=== PATIENT | female | born 1985 | race Caucasian/White ===

== ENCOUNTER 2022-04-17 17:00 | Emergency (ER) | payer BC, SELFPAY ==
[2022-04-17] VITALS (9 sets, daily range): BP systolic 104–148; BP diastolic 50–82; PULSE 62–124; RESP 13–18; TEMP 36.7; O2SAT 90–98; BMI 46.7
--- NOTE | 2022-04-17 16:57 | XR_ITS ---
PROCEDURE INFORMATION: Exam: XR Chest Exam date and time: 04/17/2022 5:18 PM Age: 36 years old Clinical indication: Angina and tachypnea; Additional info: Elevated hr, cp TECHNIQUE: Imaging protocol: XR of the chest. Views: 1 view. COMPARISON: No relevant prior studies available. FINDINGS: Lungs: Unremarkable. No consolidation. Pleural spaces: Unremarkable. No pleural effusion. No pneumothorax. Heart/Mediastinum: Unremarkable. No cardiomegaly. Bones/joints: Unremarkable. IMPRESSION: No acute findings.
--- NOTE | 2022-04-17 17:00 | ECG_ITS ---
APPROVED REPORT Exam: Resting ECG HR:116 bpm ECG Measurements Heart Rate 116 AXES FL 148 P 17 QRSd 93 QRS 72 QT 327 T 49 QTc 396 Conclusion SINUS TACHYCARDIA LOW QRS VOLTAGE IN PRECORDIAL LEADS [QRS DEFLECTION < 1.0 mV IN CHEST LEADS] ABNORMAL RHYTHM ECG UNCONFIRMED REPORT Electronically signed by : Vipin Avilez MD 04/17/2022 21:31:11
--- NOTE | 2022-04-17 17:19 | HMH.EDGENADL ---
ED Disposition <Breann Morataya - Last Filed: 04/17/22 20:27> Condition on Discharge: Good - Critical Care Critical Care Time: No <RochelleCharlie duron - Last Filed: 04/17/22 21:04> Clinical Impression: Atypical chest pain, Palpitations Disposition: Home, Self-Care Instructions: DI for Atypical Chest Pain Additional Instructions: see card in am Referrals: Provider,Referral, MD [Referring] - Attestation: On 04/17/22, the high probability of a clinically significant, sudden or life threatening deterioration of the following system(s) required my full and direct attention, intervention and personal management. The time I documented below is in addition to time spent performing reported procedures but includes the following listed in this critical care notation. Medical Decision Making - Medical Records Medical records reviewed: Yes: I reviewed the patient's medical records. - Lab Data Lab results reviewed: Yes: I reviewed the patient's lab results. Result diagrams: 04/17/22 17:18 04/17/22 17:18 <Breann Morataya - Last Filed: 04/17/22 20:27> - Jonathan Inquiry Pt receiving controlled substance: No - Lab Data Result diagrams: 04/17/22 17:18 04/17/22 17:18 - Radiology Data #1 Image(s): Chest Image Reviewed: Yes I have reviewed radiologist's interpretation Preliminary Findings: Normal/NAD - CT Data CT Scan: Chest Time Received: 21:[address] Reviewed: Yes: I have viewed the radiologist's interpretation Preliminary Findings: Normal/NAD - ECG Data Tracing #1 Arrhythmias present: sinus tach Ischemic changes: non-specific ST-T wave changes <RochelleCharlie Hendrix - Last Filed: 04/17/22 21:04> Vital Signs: 04/17/22 16:51 04/17/22 17:20 04/17/22 17:45 Temperature 98.1 F Temperature Source Oral Pulse Rate 108 H 108 H Pulse Rate [Right Radial] 124 H Respiratory Rate 18 16 13 Blood Pressure 123/75 114/70 Blood Pressure [Right Arm] 104/50 L Blood Pressure Mean 82 Blood Pressure Mean [Right Arm] 68 Blood Pressure Source [Right Arm] Automatic Cuff Blood Pressure Position [Right Arm] Sitting 02 Sat by Pulse Oximetry 97 90 L 97 Oxygen Delivery Method Room Air Nasal Cannula Oxygen Flow Rate (LPM) 2 04/17/22 17:51 04/17/22 18:00 04/17/22 18:30 Temperature Temperature Source Pulse Rate 117 H 102 H 105 H Pulse Rate [Right Radial] Respiratory Rate 16 15 Blood Pressure 113/75 131/76 Blood Pressure [Right Arm] Blood Pressure Mean 85 86 Blood Pressure Mean [Right Arm] Blood Pressure Source [Right Arm] Blood Pressure Position [Right Arm] 02 Sat by Pulse Oximetry 97 96 98 Oxygen Delivery Method Nasal Cannula Nasal Cannula Oxygen Flow Rate (LPM) 2 2 04/17/22 18:55 04/17/22 19:01 Temperature Temperature Source Pulse Rate 62 100 H Pulse Rate [Right Radial] Respiratory Rate 14 14 Blood Pressure 142/82 H 148/81 H Blood Pressure [Right Arm] Blood Pressure Mean 93 93 Blood Pressure Mean [Right Arm] Blood Pressure Source [Right Arm] Blood Pressure Position [Right Arm] 02 Sat by Pulse Oximetry 98 98 Oxygen Delivery Method Nasal Cannula Nasal Cannula Oxygen Flow Rate (LPM) 2 2 - Lab Data Lab Results 04/17/22 17:18: WBC 12.0 H, RBC 4.54, Hgb 13.9, Hct 43.0, MCV 94.5, MCH 30.7, MCHC 32.4, RDW 13.7, Plt Count 384, MPV 8.4, Neut % (Auto) 85.5 H, Lymph % (Auto) 9.8 L, [place] % (Auto) 3.2, Eos % (Auto) 0.3, Baso % (Auto) 1.3, Neut # (Auto) 10.3 H, Lymph # (Auto) 1.2, [place] # (Auto) 0.4, Eos # (Auto) 0.0, Baso # (Auto) 0.2, Total Counted 100, Neutrophils % (Manual) 82 H, Lymphocytes % (Manual) 11, Monocytes % (Manual) 7, Platelet Estimate Normal, Hypochromasia 2+, Anisocytosis 1+ 04/17/22 17:18: Sodium 137, Potassium 3.7, Chloride 100, Carbon Dioxide 29, Anion Gap 11.7, BUN 9, Creatinine 0.70, Estimated Creat Clear 103, Estimated GFR 94, Est GFR ( Amer) 114, Glucose 115 H, Calcium 8.9, Troponin I < 0.01 04/17/22 17:18: D-Dimer 0.68
--- NOTE | 2022-04-17 17:22 | PC.NURSE ---
Lab at bedside
[2022-04-17 17:35] LABS: Basophils # 0.2 K/mm3 (0-0.2); Basophils % 1.3 % (0.1-2.0); Eosinophils % 0.3 % (0.1-12.0); Hemoglobin 13.9 g/dL (12.2-16.2); Lymphocytes # 1.2 K/mm3 (0.7-4.5); Lymphocytes % 9.8 % (10-50); Mean Corpuscular HGB Conc 32.4 g/dL (31.8-35.4); Mean Corpuscular Hemoglobin 30.7 pg (27.0-31.2); Mean Corpuscular Volume 94.5 fl (81-99); Mean Platelet Volume 8.4 fl (7.4-10.4); Monocytes # 0.4 K/mm3 (0.1-1.0); Monocytes % 3.2 % (1.7-9.3); Neutrophils # 10.3 K/mm3 (1.8-7.8); Neutrophils % 85.5 % (37.0-80.0); Platelet Count 384 K/mm3 (142-424); Red Blood Count 4.54 M/mm3 (4.20-5.40); Red Cell Distribution Width 13.7 % (11.5-17.5)
[2022-04-17 17:39] LABS: Anion Gap 11.7 mEq/L (5-15); Blood Urea Nitrogen 9 mg/dl (7-17); Calcium 8.9 mg/dl (8.4-10.2); Carbon Dioxide 29 mmol/L (22.0-30.0); Chloride 100 mmol/L (98-107); Creatinine Clearance Estimated 103 mL/min (50-200); Estimated Glomerular Filt Rate 94 ml/min (>60); GFR (African American) 114 ML/MIN (>60); Glucose 115 mg/dl (74-100); Potassium 3.7 mmoL/L (3.5-5.1); Sodium 137 mmol/L (136-145)
[2022-04-17 17:43] LABS: MANUAL DIFFERENTIAL MANUAL DIFFERENTIAL (MANUAL DIFF)
[2022-04-17 17:47] LABS: D-Dimer 0.68 ug/mL (0.0-0.5)
--- NOTE | 2022-04-17 17:50 | PC.NURSE ---
PT STATES SHE WAS GIVEN ASA 324MG ENROUTE
[2022-04-17 18:03] LABS: Anisocytosis 1+; Hypochromasia 2+; Lymphocytes % 11 % (10-50); Monocytes % 7 % (2-9); Neutrophils % 82 % (42-76); Platelet Estimate Normal; Total Cells Counted 100; Troponin I < 0.01 ng/ml (0.00-0.034)
[2022-04-17 18:14] LABS: Thyroid Stimulating Hormone 1.52 uIU/mL (0.465-4.68)
--- NOTE | 2022-04-17 19:15 | CT_ITS ---
PROCEDURE INFORMATION: Exam: CTA Chest With Contrast Exam date and time: 04/17/2022 7:38 PM Age: 36 years old Clinical indication: Pain; Chest pressure; Additional info: Hypoxia, tachycardia, elevated dimer TECHNIQUE: Imaging protocol: Computed tomographic angiography of the chest with contrast. 3D rendering (Not supervised by radiologist): MIP and/or 3D reconstructed images were created by the technologist. Radiation optimization: All CT scans at this facility use at least one of these dose optimization techniques: automated exposure control; mA and/or kV adjustment per patient size (includes targeted exams where dose is matched to clinical indication); or iterative reconstruction. Contrast material: ISOVUE 370; Contrast volume: 70 ml; Contrast route: INTRAVENOUS (IV); COMPARISON: CR XR CHEST PORTABLE 04/17/2022 5:18 PM FINDINGS: Pulmonary arteries: No evidence of pulmonary embolus. Aorta: Unremarkable. No aortic aneurysm. No aortic dissection. Lungs: Focus of cystic change inferiorly in the right middle lobe. Superimposed more subtle regions of cystic change demonstrated bilaterally. The minimal regions of parenchymal scarring at the left lung base. Pleural spaces: Unremarkable. No pneumothorax. No pleural effusion. Heart: Unremarkable. No cardiomegaly. No pericardial effusion. Lymph nodes: Unremarkable. No enlarged lymph nodes. Gallbladder and bile ducts: Cholelithiasis. Bones/joints: Unremarkable. No acute fracture. Soft tissues: Unremarkable. Other findings: Study technically limited secondary to less than optimal timing of contrast administration. IMPRESSION: 1. No evidence of pulmonary embolus. 2. Minimal regions of parenchymal scarring at the left lung base. Associated early subtle changes of cystic change. Clinically correlate regarding mild changes of centrilobular emphysema. 3. Cholelithiasis.
[2022-04-17 20:58] LABS: Troponin I < 0.01 ng/ml (0.00-0.034)
== END 2022-04-17 21:20 | disposition home or self-care (01) ==
PROVIDERS: Emergency Provider Emergency Medicine; PCP Family Medicine
DX: R07.9 Chest pain, unspecified (principal); R00.2 Palpitations; R00.0 Tachycardia, unspecified; R09.02 Hypoxemia; R20.2 Paresthesia of skin; E66.9 Obesity, unspecified; Z79.899 Other long term (current) drug therapy; Z88.8 Allergy status to other drugs, medicaments and biological substances; Z68.42 Body mass index [BMI] 45.0-49.9, adult
CPT/HCPCS: 36415; 71045; 71275; 80048; 84436; 84443; 84484; 85007; 85025; 85378; 93005; 96360; 96375; 99285; Q9967

== ENCOUNTER → 2022-04-18 11:15 | Outpatient (CLI) | payer BC, SELFPAY | PROVIDERS: PCP Family Medicine; Visit Provider Nurse Practitioner Family | DX: R06.00 Dyspnea, unspecified (principal); R07.89 Other chest pain; R00.2 Palpitations; R93.89 Abnormal findings on diagnostic imaging of other specified body structures | CPT/HCPCS: 93270 ==

== ENCOUNTER → 2022-04-27 08:23 | Outpatient (CLI) | payer BC, SELFPAY ==
--- NOTE | 2022-04-27 | CA_ITS ---
APPROVED REPORT Exam: Exercise Treadmill Technologist: Elise Rodriguez, Ht: 5 ft 6 in Wt: 292 lbs BSA: 2.35 m2 HR: 90 bpm BP: 145/76 mmHg Rhythm: NSR, normal Medical History Medications: PraZOSIN,,,,, Ambien,,,,, LaBetalol,,,,, Geodon,,,,, Stress Test Details Test: Vanita HR Resting HR: 89 bpm Max Heart Rate (APMHR): 183.067299 bpm Max HR Achieved: 167 bpm Target HR (85% APMHR): 155.353502 bpm % of APMHR: 91.26 Recovery HR: 144 bpm BP Resting BP: 124/89 mmHg Max BP: 148/80 mmHg Recovery BP: 136.0/82.0 mmHg ECG Resting ECG: NSR, normal Clinical Exercise duration: 06:31 min Highest Stage Achieved: Exercise capacity: 7.0 METs Stress ECG Conclusion Pt exercised total of 6:31 into stage 3 of vanita protocol. Pt experinced SOA, no CP noted. Rare PVC. Allowing for motion artifact the ST response to exercise is within normal. Normal GXT. Test Summary RECOVERY 01:00 0.0 0.0 144 . . . Stop exercise at 06:31 REST . . . . . . . Standing REST 04:57 0.0 0.0 89 . 124/ 89 . . Stage 1 01:00 10.0 1.7 122 . . . . Stage 1 02:00 10.0 1.7 137 . . . . Stage 1 03:00 10.0 1.7 141 . 148/ 80 . . Stage 2 01:00 12.0 2.5 152 . . . . Stage 2 02:00 12.0 2.5 157 . . . . Stage 2 03:00 12.0 2.5 159 . . . . Stage 3 00:31 14.0 3.4 155 . . . Stop exercise at 06:31 RECOVERY 01:00 0.0 0.0 144 . . . . RECOVERY 02:00 0.0 0.0 128 . 136/ 82 . . RECOVERY 03:00 0.0 0.0 104 . 132/ 85 . . RECOVERY 04:00 0.0 0.0 98 . 132/ 85 . . RECOVERY 05:00 0.0 0.0 97 . 130/ 75 . . RECOVERY 05:55 0.0 0.0 97 . 126/ 70 . . Electronically signed by : Sohan Foley MD 04/28/2022 11:03:48
--- NOTE | 2022-04-27 09:05 | CA_ITS ---
APPROVED REPORT EXAM: Comprehensive 2D, Doppler, and color-flow Echocardiogram Film Cutter: JACE Sanchez, RVS Ht: 5 ft 6 in Wt: 292lbs BSA: 2.35 BP: 115/57 mmHg Indications: CP, Tachycardia, Smoker, SOB, Palpitations, Obesity Echo Enhancing Agent Comments: Poor acoustics throughout exam unaided by large body habitus and lung impedence. 2D Dimensions IVSd 0.93 cm LVEF (Visual) 71.10 % PWd 0.94 cm LA Volume 35.30 mL LVDd 4.66 cm LA Volume Index 15.00 mL/m2 (M/F) 16-34 LVDs 2.78 cm Aortic Root 2.97 cm Left Atrium 2.88 cm LVOT 2.02 cm (M/F) 1.5-2.5 M-Mode Dimensions RVDd 1.94 cm (0.9-2.6) LA Diam 2.71 cm (1.9-4.0) LVDd 4.86 cm (3.5-5.7) Ao Diam 3.48 cm (2.0-3.7) LVDs 3.47 cm (3.5-5.7) IVSd 1.27 cm (0.6-1.1) PWd 0.89 cm (0.6-1.1) EF (Teich) 55.00% EPSs 1.19 cm FS 28.60% EDV (Teich) 110.70 mL TAPSE 1.75 (<1.7) ESV (Teich) 49.80 mL LV Diastology E Decel Time 190.00 (160-240 msec) E/A Ratio 0.87 MED E' 10.00 (< 7 cm/sec) MED A' 11.70 cm/s E'/MED E' Ratio 4.47 (>14) LAT E' 12.90 (<10 cm/sec) LAT A' 8.90 cm/s E/LAT E' Ratio 3.47 (>14) Aortic Valve LVOT Max 96.00 (70-110 cm/s) LVOT VTI 18.31 cm AoV Peak Jake. 111.00 (50-130 cm/s) AO Peak GR. 4.90 mmHg AO Mean GR. 2.40 (<5 mmHg) AO VTI 21.95 (18-25 cm) DANICA (VTI) 2.67 (2.5-4.5 cm2) Mitral Valve MV A Velocity 51.00 (40-130 cm/s) E/A Ratio 0.87 MV Decel. Time 190.00 (160-240 ms) MV Mean Gr. 0.90 (<2mmHg) Pulmonary Valve PV Peak Velocity 66.00 (50-150 cm/s) Left Ventricle Technically difficult study because of the patient factors and poor acoustic windows. Left atrium is normal size, left ventricle is normal size, there is no concentric left ventricular hypertrophy, estimated ejection fraction 55% with no regional wall motion abnormality, diastolic parameters are within normal range. Right Ventricle Right atrium and right ventricle are normal size and contractility. Aortic Valve Aortic valve is grossly normal there is no aortic stenosis or aortic insufficiency. Mitral Valve Mitral valve grossly normal, there is trace mitral regurgitation. Tricuspid Valve Tricuspid valve grossly normal, there is trace tricuspid regurgitation, tricuspid regurgitation jet velocity is inadequate for calculation of the right ventricular systolic pressure. Pulmonic Valve Pulmonic valve is poorly visualized. Great Vessels Aortic root is normal size. Inferior vena cava is normal size with normal inspiratory collapse. Pericardium No significant pericardial effusion noted. Conclusion 1. Technically difficult study because of the patient factors and poor acoustic windows. 2. Normal left ventricular size with preserved left ventricular systolic function, estimated ejection fraction 55% with no regional wall motion abnormality, diastolic parameters are within normal range. 3. Trace mitral and tricuspid regurgitation. 4. No significant pericardial effusion noted. 5. Inferior vena cava normal size and normal inspiratory collapse. Electronically signed by : Sohan Foley MD 04/28/2022 12:08:31
== END ==
PROVIDERS: PCP Family Medicine; Visit Provider Nurse Practitioner Family
DX: R06.00 Dyspnea, unspecified (principal); R07.89 Other chest pain; R00.2 Palpitations; R93.89 Abnormal findings on diagnostic imaging of other specified body structures
CPT/HCPCS: 93017; 93306